=== PATIENT | female | born 1945 | race Caucasian/White ===

== ENCOUNTER → 2016-07-15 | Outpatient (CLI) | payer BC ==
[~2016-07-15] MED LIST: ASPIRIN81 M2 PO; CALCIUM 600 MG1 EAC3 PO; CARAFATE 1 GM TA1 G1 PO; DILTIAZEM ER180 M1 PO; METAMUCIL0.52 GM PO; PANTOPRAZOLE SO40 MG PO; RECLAST 55 MG/1002 IVPB; VITAMIN D31000 UNI2 PO; XANAX 0.5 MG0.5 M1 PO; ZESTORETIC 20-1 EACH PO
== END ==
LOC: RAD 15:22
DX: Z12.31 Encounter for screening mammogram for malignant neoplasm of breast (principal)

== ENCOUNTER → 2017-03-10 | Outpatient (CLI) | payer OTHER, BC ==
[2017-03-10 11:47] LABS: CREATININE 0.9 mg/dL (0.6-1.0); POTASSIUM 3.7 mmol/L (3.5-5.1)
== END ==
LOC: LABMALL 11:15
PROVIDERS: Internal Medicine
DX: R10.84 Generalized abdominal pain (principal)

== ENCOUNTER → 2017-03-25 | Outpatient (CLI) | payer OTHER, BC | LOC: CAT 12:53 | DX: K55.9 Vascular disorder of intestine, unspecified (principal) ==

== ENCOUNTER → 2017-07-20 | Outpatient (CLI) | payer OTHER, BC | LOC: RAD 01:26 | DX: Z12.31 Encounter for screening mammogram for malignant neoplasm of breast (principal) ==

== ENCOUNTER → 2018-07-25 | Outpatient (CLI) | payer OTHER, BC | LOC: RAD 09:23 | DX: Z12.31 Encounter for screening mammogram for malignant neoplasm of breast (principal) ==

== ENCOUNTER → 2019-08-03 | Outpatient (CLI) | payer OTHER, BC | LOC: RAD 07:19 | DX: Z12.31 Encounter for screening mammogram for malignant neoplasm of breast (principal) ==

== ENCOUNTER → 2020-09-10 | Outpatient (CLI) | payer OTHER, BC | LOC: BC 14:33 | PROVIDERS: ATTEND Internal Medicine | DX: Z12.31 Encounter for screening mammogram for malignant neoplasm of breast (principal) ==